=== PATIENT | female | born 1985 | race Caucasian/White ===

== ENCOUNTER 2021-10-20 07:14 | Outpatient (CLI) | payer OTHER, SELFPAY ==
--- OUTSIDE RECORDS SUMMARY | 2021-09-18 09:04 | XMS_ITS | Continuity of Care Document ---
:1985 Author Care Team Providers Name Role Phone MD Juan Espinoza Attending Physician MD Otto Rodriguez Primary Care Physician Chief Complaint and Reason for Visit Chief Complaint Chest Pain Reason for Visit [id number] Allergies, Adverse Reactions, Alerts Allergen Type Severity Reaction Last Verified Status Updated Anesthetics, Adverse Moderate nausea August 29, Yes Active Amide Reaction 2021 Social History Smoking Status Status Start Date End Date Date of Observat ion Never smoked tobacco August 14, 2 022 4:06pm (finding) Observation Status Observation Response Date of Response Non-smoker December 19, 2015 9:27am Does not exercise December 19, 2015 9:27am 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, 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 , project surveyor, 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, 2015 9:27am kids Additional Data Assigned Sex Female Problems Active Problems Medical Problem Onset Date Status PCOS (polycystic ovarian syndrome) Activ e Depression Active ADD (attention deficit disorder) Active Fertility testing Active Hyperemesis gravidarum Active Supervision of other normal Active Anxiety disorder affecting Active , antepartum Encounter for supervision of other Activ e normal , third trimester Sterilization education Active Sterilization Active Anemia due to acute blood loss Active Pneumonia Active Chest wall pain Active Early stage of Active Ectopic Active Encounter for screening for Active COVID-19 S/P PDA repair 1986 Active Status post primary low transverse Activ e section Inactive/Resolved Problems Medical Problem Onset Date Status Migraine July 21, 2009 Resolved Patent Ductus Arteriosus July 21, 2009 Resolved Hyperem W Metab-Antepart September 15, 2010 Resolved Vaginal delivery January 24, 2013 Resolved Medications Medication Status Dose Units Route Directions Qty Days Start End Ins tructions Date Date Lactobacillu Active 2 CAPSULE OR Daily s (Probiotic) CAP Vit Active 1 TAB PO Daily W/ Ferrous Fumara () 1 Tab TAB Acyclovir Disconti 1 BARBARA TOP 5 Times Us e in Topical nued Daily r 14, y 9, affected 2014 2016 areas of 1:47pm 9:41am nares for 5- 7 days, until healed. Amoxicillin Disconti 875 MG PO Twice Daily March il nued For 10 Days , , 2015 2015 10:18am 11:26a m Amoxicillin Disconti 875 MG PO Twice A Day Feb emb nued r , er 2014, 12:59pm 2014 1:47pm Amoxicillin Disconti 500 MG PO Tid X 10 September nued Days , , 2014 2014 5:40pm 12:11p m Amoxicillin Disconti 500 MG PO [id number] June nued r , , 2013 2014 5:30pm 6:23pm Amoxicillin Disconti 500 MG PO Tid [id number] nued , franco 2012 11, 12:52pm 2012 3:25pm Amoxicillin/ Disconti 1 TAB PO Twice Daily Ja nuar Clavulanate nued For 10 Days r , y , Potassium 2019 2020 (Amoxicillin 6:11pm 11:08a & Pot m Clavulanate) 875 Mg/125 Mg TAB Ampicillin Disconti 500 MG PO Three Times h nued A Day er , , 2021 2020 3:07pm 9:57am Azithromycin Disconti 500 MG PO Daily October nued 3rd, er 2014 01, 9:43am 2013 5:16pm Azithromycin Disconti 0 PO Daily July MARYANNE E 500 MG (2 TABLETS) BY MOUTH TODAY, THEN 250 MG (1 TABLET) BY (Zithromax) nued , y , MOUTH O NCE DAILY FOR 4 MORE DAYS. 250 Mg TAB 2009 2010 11:27am 3:19pm Betamethason Disconti 1 BARBARA TOP Twice A Day Se ptem e/Clotrimazo nued er franco le , (Clotrimazol 2019 2019 e/Betamethas 3:07pm 1:59pm one Lotion) LOT Biotin W/ Disconti 1 CHW PO July Vitamins C & nued , E (Hair Skin 2016 & Nails ... 3:49pm 1250-7.5-7.5 Mcg-Mg-Unt) 1 Chw CHW Bupropion Disconti 150 MG PO Daily Septemberuar Hcl nued 15, y (Wellbutrin 2015, Xl) 150 Mg 11:33am 2016 TAB 12:27p m Bupropion Disconti 150 MG PO Daily August Hcl nued , , (Wellbutrin 2015 2015 Xl) 150 Mg 4:23pm 11:33a TAB m Bupropion Disconti 150 MG PO Daily July Hcl nued , , (Wellbutrin 2015 2015 Xl) 150 Mg 4:19pm 4:23pm TAB Cephalexin Disconti 1000 MG PO Twice A Day 40 December em nued , franco 2018 12, 2:56pm 2019 2:30pm Cephalexin Disconti 500 MG PO Three Times ar nued A Day r 14, y 2014 1:47pm 9:41am Cephalexin Disconti 500 MG PO Four Times Octoberem nued Daily , franco 2010 9, 3:38pm 2010 4:20pm Cholecalcife Disconti 67608 U Haroonr monse nued y , (Optimal-D 2020 Pack) 50,000 11:08a Unit CAP m Cholecalcife Disconti Unknow PO Daily Octobe rol (Vitamin nued n Dose r D) Unknown , Strength TAB 2018 3:16pm Ciprofloxaci Disconti 1 TABLET PO Twice Daily September obe n Hcl nued For 7 Days , r 2014, 12:37pm 2014 6:10pm Clomiphene Disconti 50 MG PO Daily Days March Take on cycle Citrate nued 3-7 , days 2021 through 7. 10:39am 3:07pm Clomiphene Disconti 50 MG PO Daily Days May t mathieu 1 tab Citrate nued 3-7 , , daily, days 2016 2016 3-7 of your 9:59am 2:06pm cycle. Dicloxacilli Disconti 500 MG PO W0gwlix 28 mbe Haroonr n Sodium nued r 14th, y , 2016 2017 2:14pm 11:08a m Dicloxacilli Disconti 500 MG PO Four Times 56 Novembe Dec emb n Sodium nued Daily r 18th, er 2012 16th, 6:20pm 2012 10:19a m Diphtheria/T Disconti 0.5 ML IM Once 1 Septem etanus/Acell nued er franco Pertussis , (Adacel) 0.5 2016 2016 Ml INJ 3:42pm 3:50pm Diphtheria/T Disconti 0.5 ML IM Once 1 Septem etanus/Acell nued er franco Pertussis , , (Adacel) 0.5 2012 2012 Ml INJ 2:25pm 2:27pm Diphtheria/T Disconti 0.5 ML IM Once 1 Novembe Novemb etanus/Acell nued r , er Pertussis 2010, (Adacel) 0.5 2:19pm 2010 Ml INJ 2:23pm Docusate Disconti 100 MG PO Twice A Day 120 Novembe Octobe Sodium nued as needed r , r (Docqlace) 2016 15, 100 Mg CAP 8:33am 2017 9:25am Docusate Disconti 100 MG PO Daily 30 Decemb Sodium nued er 4th, er (Colace) 100 2012 16th, Mg TAB 3:50pm 2012 10:19a m Docusate Disconti 100 MG PO Daily Mayem Sodium nued 11, franco (Colace) 100 2012 4th, Mg TAB 3:13pm 2012 3:50pm Doxycycline Disconti 100 MG PO Twice Daily May ch Monohydrate nued For 14 Days er , , 2021 2020 3:07pm 1:18pm Doxycycline Disconti 100 MG PO Twice Daily March tem Monohydrate nued For 14 Days , franco 2020, 11:52am 2020 12:30p m Doxycycline Disconti 100 MG PO Twice Daily 14 7 Sep tem Monohydrate nued For 7 Days er franco , , 2019 2019 4:27pm 1:59pm Ergocalcifer Disconti [id number] UNIT PO Once Weekly 8 Novembe Ma rch ol (Vitamin nued r , , D) 50,000 2020 2021 Unit CAP 8:35am 3:07pm Ergocalcifer Disconti 66492 UNIT PO Once Weekly 8 No vemb ol (Vitamin nued er er D) 50,000 , , Unit CAP 2020 2020 8:31am 8:35am Ergocalcifer Disconti 54534 UNIT PO Once Weekly Se ptem ol (Vitamin nued er franco D) 50,000 , , Unit CAP 2019 2020 3:17pm 8:31am Fluconazole Disconti 150 MG PO Once Marchr ta ke 1 tab (Diflucan) nu, y today. re peat 150 Mg TAB 2016, in 3 days if 1:19pm 2016 still 11:34a symptomatic. m Fluconazole Disconti 150 MG PO Once July (Diflucan) nued , , 150 Mg TAB 2012 2012 5:31pm 3:46pm Gabapentin Disconti 300 MG PO Three Times Octo be Take 300mg (Neurontin) nued A Day er r TID for 2 300 Mg CAP , , weeks. 2010 2010 1:26pm 8:31am Gabapentin Disconti 300 MG PO Three Times October m Take one pill daily for 3 days, then one pill twice a day for 3 days, (Neurontin) nued A Day , franco then one pill three times a day. 300 Mg CAP 2010, 5:02pm 2010 1:26pm Heparin Disconti 250 UNIT IVF Daily August Sodium nued , (Porcine) 2010 11, (Heparin) 11:24am 2010 100 Unit/ 4:20pm SYR Heparin Disconti 500 UNIT IVF Q12 Hours August Sodium nued , , (Porcine) 2010 2010 (Heparin) 8:51am 11:24a 100 Unit/ m SYR Ibuprofen Disconti 200-40 MG PO Every 6 100 Octobe nued 0 Hours as r needed 2018 3:16pm Ibuprofen Disconti 600 MG PO Every 6 50 Novembe Octobe nued Hours as r , r needed 2016, 9:46am 2017 9:25am Influenza Disconti 0.5 ML IM Once 1 Sept Septem Virus nued er franco Vaccine , , Split 2012 2012 (Fluzone (3 2:25pm 2:27pm Years And Older) [id number]) 1 Ml INJ Ketorolac Disconti 10 MG PO Three Times May Tromethamine nued A Day as r , , needed 2020 2021 8:04pm 3:07pm Lactated Disconti 1 L IV Once July Ringer's nued 2012 10:37am 11:51a m Lactated Disconti 1 L IV Once Ringer's nued r , er 2010, 12:35pm 2010 1:33pm Lactated Disconti 1 L IV Once October Ringer's nued 2010 12:38pm 4:03pm Lactated Disconti 1 L IV Once October Ringer's nued 2010 4:22pm 4:24pm Lactated Disconti 1 L IV Once September Ringer's nued 2010 5:09pm 5:15pm Lactated Disconti 1 L IV Once September Ringer's nued 2010 5:19pm 5:26pm Lactated Disconti 1 L IV Once August Ringer's nued 2010 2:19pm 4:33pm Lactated Disconti 1 L IV Once August Ringer's nued 2010 1:51pm 1:54pm Lactated Disconti 1 L IV Once August Started IV at Ringer's ed , , 1031. 2010 2010 10:44am 2:30pm Lactated Disconti 1 L IV Once July Ringer's nued , 2010 4:51pm 4:57pm Lactobacillu Disconti Septem s Rhamnosus nued franco (Culturelle) Ea CAP 2019 9:36am Loratadine Disconti 10 MG PO Daily 30 Octobe (Claritin) nued r 8th, 10 Mg TAB 2019 6:57am Loratadine Disconti 10 MG OR Daily Septem (Claritin) nued franco 10 Mg CAP 2015 2:25pm Medroxyproge Disconti 10 MG PO Daily 1 0 DAYS/MONTH sterone nued er r DIRECTED Acetate , , (Provera) 10 2015 2015 Mg TAB 2:52pm 2:33pm Medroxyproge Disconti 10 MG PO Daily July 10 D AYS/MONTH sterone nued , , DIRECTED Acetate 2015 2015 (Provera) 10 4:19pm 3:56pm Mg TAB Medroxyproge Disconti 10 MG PO Daily September sterone nued X10d/Mon Ud , , Acetate 2011 2012 (Provera) 10 3:54pm 2:27pm Mg TAB Methylpredni Disconti 16 MG PO Three Times August 4 pills 3 times a day for 3 days, then 3 pills 3 times a day for 3 solone nued A Day , , days, then 1 1/2 pills 3 times a day for 3 days. (Medrol) 4 2010 2010 Mg TAB 8:51am 3:38pm Methylpredni Disconti 2 MG PO Daily September 1.5 tabs tid for 3 days, then 1.5 tabs bid for 3 days, then 1 tab bid solone nued , for 3 days, t hen 1 tab daily for 3 days, then stop. (Medrol) 2 2010 2010 Mg TAB 11:47am 3:38pm Methylpredni Disconti 2 MG PO As Directed September 4mg po tid x3 days, then solone nued , , 4mg po bid x3 days, then (Medrol) 2 2010 2010 2mg po bi d x3days, then Mg TAB 1:35pm 3:38pm 2mg po qday x3days, then stop. Metocloprami Disconti 5 MG PO Three Times August de Hcl nued A Day , 14, (Reglan) 2010 Mg TAB 2:54pm 1:49pm No Home Meds Disconti Januar nued y 2010 3:19pm Norethindron Disconti 1 EA PO As Directed mbe Ap ril Day #1 Take 5 pills, Day #2 Take 4 Pills, Day#3 & 4 Take 3 pills, Day e-Ethinyl nued r 29, 15, # 5 & 6 Take 2 pills, then finish out pack. Estradiol 2008 2009 (0.4/35) 2:54pm 10:28a (Ovcon-35) m 0.4 Mg/0.035 Mg TAB Norethindron Disconti 1 TABLET PO Daily October e-Ethinyl nued , er Estradiol 2014 01, (.08/21) 11:20am 2013 (Loestrin 5:16pm -) 1.5 Mg/0.03 Mg TAB Ondansetron Disconti 4 MG PO Every 6 Januar Hcl nued Hours as r 19, y 5th, (Ondansetron needed 2019 2020 Odt) 4 Mg 6:11pm 11:08a TAB m Ondansetron Disconti 8 MG PO Every 8 21 January Octobe Hcl (Zofran) nued Hours 8th, r 8 Mg TAB 2018, 2:53pm 2018 3:16pm Ondansetron Disconti 8 MG PO Three Times 21 November Octo be Hcl (Zofran) nued A Day as 18, r 8 Mg TAB needed 2016, 2:26pm 2016 10:08a m Ondansetron Disconti 8 MG PO Three Times 22 July Augus t Hcl (Zofran) nued A Day as , 18th, 8 Mg TAB needed 2016 2016 2:59pm 2:26pm Ondansetron Disconti 4 MG PO Every 6 May Hcl (Zofran nued Hours as 23, 3rd, Odt) 4MG TAB needed 2016 2016 2:56pm 3:15pm Ondansetron Disconti 4 MG PO Four Times 21 October Decemb Hcl (Zofran nued Daily as 8th, er Odt) 4 Mg needed 2012, TABEF 12:13pm 2012 10:19a m Ondansetron Disconti 4 MG PO Four Times June Hcl (Zofran nued Daily as 15th, 8th, Odt) 4 Mg needed 2012 2012 TABEF 3:09pm 12:13p m Ondansetron Disconti 4 MG PO Four Times May Hcl (Zofran nued Daily as 11th, 17th, Odt) 4 Mg needed 2012 2012 TABEF 3:13pm 3:46pm Ondansetron Disconti 4 MG PO Four Times May Hcl (Zofran nued Daily as 25th, 17th, Odt) 4 Mg needed 2012 2012 TABEF 2:22pm 3:46pm Ondansetron Disconti 4 MG IV Once July Hcl (Zofran nued 3rd, 3rd, Inj) 2 Mg/Ml 2012 2012 ML 10:37am 10:39a m Ondansetron Disconti 4 MG IV Once Hcl (Zofran nued r 23rd, er Inj) 2 Mg/Ml 2010, ML 12:35pm 2010 12:36p m Ondansetron Disconti 4 MG IV Once Decemberobe Hcl (Zofran nued 3rd, r 3rd, Inj) 2 Mg/Ml 2010 2010 ML 12:08pm 2:26pm Ondansetron Disconti 4 MG PO Four Times Augustem Hcl (Zofran) nued Daily 14, franco 4 Mg TAB 2010 11, 1:49pm 2010 4:20pm Ondansetron Disconti 4 MG IV Once October Hcl (Zofran nued 18th, 18th, Inj) 2 Mg/Ml 2010 2010 ML 12:38pm 4:03pm Ondansetron Disconti 4 MG IV Once October Hcl (Zofran nued , 12th, Inj) 2 Mg/Ml 2010 2010 ML 4:22pm 4:24pm Ondansetron Disconti 4 MG IV Once September Hcl (Zofran nued 29th, 29th, Inj) 2 Mg/Ml 2010 2010 ML 4:00pm 4:09pm Ondansetron Disconti 4 MG IV Once September Hcl (Zofran nued 26th, 27th, Inj) 2 Mg/Ml 2010 2010 ML 4:03pm 1:18pm Ondansetron Disconti 4 MG IV Once September Hcl (Zofran nued , 20th, Inj) 2 Mg/Ml 2010 2010 ML 4:40pm 4:42pm Ondansetron Disconti 4 MG IV Once September Hcl (Zofran nued 12th, 12th, Inj) 2 Mg/Ml 2010 2010 ML 5:09pm 5:15pm Ondansetron Disconti 4 MG IV Once September Hcl (Zofran nued 5th, 5th, Inj) 2 Mg/Ml 2010 2010 ML 5:19pm 5:26pm Ondansetron Disconti 4 MG IV Once September Hcl (Zofran nued , , Inj) 2 Mg/Ml 2010 2010 ML 11:17am 3:14pm Ondansetron Disconti 4 MG IV Once August Hcl (Zofran nued , , Inj) 2 Mg/Ml 2010 2010 ML 2:20pm 4:33pm Ondansetron Disconti 4 MG IV Once August Hcl (Zofran nued , , Inj) 2 Mg/Ml 2010 2010 ML 1:51pm 1:54pm Ondansetron Disconti 4 MG PO Every 4-6 July Hcl nued Hours as , , (Ondansetron needed 2010 2010 Odt) 4 Mg 1:25pm 1:49pm TAB Ondansetron Disconti 4 MG PO Every 4-6 July Hcl nued Hours 24, 14, (Ondansetron 2010 2010 Odt) 4 Mg 2:56pm 1:49pm TAB Ondansetron Disconti 4 MG IV Once August Hcl (Zofran nued , 13, Inj) 2 Mg/Ml 2010 2010 ML 1:44pm 1:46pm Ondansetron Disconti 4 MG IV Once August Hcl (Zofran nued , 10th, Inj) 2 Mg/Ml 2010 2010 ML 10:44am 10:46a m Ondansetron Disconti 4 MG IV Once July Hcl (Zofran nued 9th, 9th, Inj) 2 Mg/Ml 2010 2010 ML 4:51pm 4:57pm Oxycodone Disconti 5-10 MG PO Every 4 May Hcl nued Hours as 4th, 21st, needed 2021 2021 9:37am 3:07pm Oxycodone Disconti 5-10 MG PO Every 4 40 Novembe Decemb Hcl nued Hours as , er needed 2016 09, 8:33am 2016 11:20a m Phenazopyrid Disconti 200 MG PO Three Times 10 September ine Hcl nued A Day as , , (Pyridium) needed 2014 2014 200 Mg TAB 5:40pm 12:11p m Polysacchari Disconti 1 CAPSULE PO Daily 60 Novembe Januar de Iron nued r 24, y 3rd, Complex 2016 2017 (Poly-Iron 8:21am 11:08a 150 Forte) m 150 Fort CAP Disconti 1 TAB PO Daily Multivit-Min nued r W/Fe-Fa 2017 9:25am Disconti 1 TAB PO Daily October Multivit-Min nued 3rd, W/Fe-Fa 2013 9:20am Promethazine Disconti 25 MG PO Four Times Juneob e Hcl nued Daily as , r needed for 2016, Nausea/Vomi 9:41am 2016 ting 10:08a m Promethazine Disconti 25 MG PO Q4-6H Prn 22 July Decemb Hcl nued 15, er (Phenergan) 2012, 25 Mg TAB 3:09pm 2012 10:19a m Promethazine Disconti 25 MG PO Q4-6H Prn 21 October Decemb Hcl nued , er 2012 16, 12:34pm 2012 10:19a m Promethazine Disconti 25 MG PO Every 4-6 May Hcl nued Hours 11, 17, (Phenergan) 2012 2012 25 Mg TAB 3:13pm 3:46pm Promethazine Disconti 12.5 MG IA Every 4-6 August PRN nausea Hcl nued Hours as , , (Phenergan needed 2010 2010 Supp) 12.5 3:36pm 8:51am Mg SUPP Ranitidine Disconti 150 MG PO Januar Hcl (Zantac nued y 3rd, 150 Maximum 2017 Streng) 150 11:08a Mg TAB m Ranitidine Disconti 150 MG PO Bedtime Eden Hcl nued 2011 3:43pm Senna/Docusa Disconti 1 TAB PO Twice A Day 30 Novembe Ja nuar te Sodium nued as needed r 19, y , (Senna S) 2019 2020 8.6 Mg/50 Mg 6:11pm 11:08a TAB m Sertraline Disconti 50 MG PO Daily March 25mg daily x Hcl nued , , 1week, then 2016 2016 50mg daily 12:27pm 2:06pm Sodium Disconti 10 ML IVF Daily August Prior to Chloride nued , heparin (Saline 2010 11, flush. Flush 10 Ml) 11:24am 2010 10 Ml SOLN 4:20pm Triamcinolon Disconti 1 BARBARA TOP Twice A Day Ja nuar e Acetonide nued er y , (Triamcinolo 2020 ne Acetonide 2019 11:08a (Cream)) 0.1 3:54pm m % CRE Valacyclovir Disconti 1 GM PO Twice A Day Juneo be Hcl nued , r 2016 02, 11:42am 2015 2:33pm Valacyclovir Disconti 1 GM PO Twice A Day 20 Decembe Ap ril Hcl nued r , 2014 1:47pm 11:42a m Vit Disconti 1 TABLET PO Daily September B12/Iron/Fol nued , ic Ac/Intrin 2011 Fact 3:43pm ( Multivit-Min W/Fe-Fa) TAB Immunizations Immunization Event Date Not Given Dose Jd Edwards Developer Lot Vac cine Reason Number Number Informatio n Statement (VIS) Deta il COVID-19 Pfizer November 152020 Influenza November 23 Sanofi [id number] Tetanus/Diptheri June 23 a 1997 Tdap December 28 (adolescent/adul 2007 t) Tdap January 24 sanofi (adolescent/adul 2010 t) Tdap November 25 Sanofi Pasteur (adolescent/adul 2012 t) Tdap November 26 SANOFI (adolescent/adul 2016 t) Procedures Procedure Date Performed Status Future Lab Clinic August 18, 2021 completed Future Lab Clinic August 23, 2021 completed VASCULAR STUDY August 15, 2021 completed US EXAM PELVIC COMPLETE August 15, 2021 completed TRANSVAGINAL US NON-OB August 15, 2021 completed CHORIONIC GONADOTROPIN TEST August 18, 2021 completed HYSTEROSCOPY BIOPSY August 29, 2021 completed ANESTH HYSTEROSCOPE/GRAPH August 29, 2021 completed ANESTH HYSTEROSCOPE/GRAPH August 29, 2021 completed URINE TEST August 29, 2021 completed IV SOLUTION August 29, 2021 completed FENTANYL August 29, 2021 completed CEFOTETAN August 29, 2021 completed ONDANSETRON August 29, 2021 completed KETOROLAC TROMETHAMINE INJECTION August 29, 2021 complet ed Propofol 10 mg August 29, 2021 completed PROMETHAZINE August 29, 2021 completed SARS-COV-2 COVID-19 AMP PRB August 28, 2021 completed Ultrasound of pelvis using August 15, 2021 completed transabdominal and transvaginal probes Relevant Diagnostic Tests and/or Laboratory Data Laboratory Results Test Date/Time Result Interpretation Reference Result [facility] Range Comment Coronavirus August 28, NEGATIVE NEGATIVE [facility] [place] (COVID-19)(P 2021 SARS-CoV- novel [facility] CR) 1:32pm 2 coronavirus [facility] [address] (SARS-CoV-2) target nucleic acids are not detected by RT-PCR. This result does not rule out SARS-CoV-2 in the patient, as the sensitivity of the test depends on timing of the specimen collection and quality of the specimen. Results should be correlated with the patient's history and clinical presentation . Urine HCG, August 29, NEGATIVE NEGATIVE [facility] Lab Qualitative 2021 [facility] 9:24am [facility] [address] Human August 18, < 2.39 0-5.00 MEN<5 [facility] Lab Chorionic 2021 mIU/mLWOMENN [facility] Gonadotropin 9:40am ON- [facility] [address] , Quant - <5 mIU/mLINDETE RMINANT, may require repeat testing - 5-25 mIU/mLPREGNA NT< 1 WEEK5-50 mIU/mL1-2 [id number] -3 [id number] 03-4 PDDSQ882-84, 0004-5 WEEKS1,000-5 0,0005-6 WEEKS10,000- 100,0006-8 WEEKS15,000- 200,0008-12 WEEKS10,000- 100,000Patie nts taking a high dose (>5mg/day) of Biotin supplement (vitamin B7) will demonstrate a >10% negative bias for this test. Pathology August 29, SEE REF [facility] Lab Specimen 2021 PATH SCAN [facility] Result 10:30am [facility] [address] Diagnostic Imaging Reports Report Dictated Date/Time Dictated By Status August 15, 2021 9:11am [place] [address] ~DEPARTMENT OF DI AGNOSTIC IMAGING~ Patient: ELISHA HERRERA MR #: [id number] : 1985 Age: 36 Sex: F Ordering MD: Pinky Espinoza MD Rm /Bed: Loc: RAD Report #: [id number] US/PEL KIMBERLY TA AND TV Date: 08/15/21 Signed For Patients: As a result of the entury Cures Act, medical imaging exams and procedure reports are release d immediately into your electronic medical record. You may view this repo rt before your referring provider. If you have questions, please contact y our health care provider. INDICATION: Left pelvic pain, right-sided ectopic 2 months ago status post laparoscopic surgery. History of tubal reversal. COMPARISON: 05/26/2021, 05/11/2020 TECHNIQUE: 2D chaidez scale and color Doppler images were acquired of the pelvis using a transabdominal and transvaginal approac h. FINDINGS: The uterus is retroflexed. No uterine f ibroid. The uterus measures 9.7 x 4.7 x 6.0 cm. The endometrium measures 1.2 cm. No endometrial fluid. No intrauterine . Focal area of i ncreased echogenicity within the fundal endometrium measuring 1 cm is pr esent which may represent a focal area of hyperplasia or perhaps a small polyp. The right ovary measures 3.5 x 1.4 x 2. 2 cm in the left ovary measures 4.1 x 2.3 x 3.1 cm. Adjacent to the left ov vilma is a somewhat vascular mixed solid and cystic area measuring 2.7 x 1 .3 x 1.5 cm. A small cyst is located within the left ovary measuring 1.9 x 1 .7 x 1.9 cm. Trace amount of pelvic free fluid noted. IMPRESSION: Indeterminate solid and cystic vascular area within the left adnexa separate from the left ovary measuring 2.7 x 1.3 x 1.5 cm, cannot exclude recurrent ectopic. No evidence of ovari an torsion. Dictated by Mk Serra MD @ 2 9:20:00 AM (Electronically Signed) Dictated By: MK SERRA MD Signed By: MK SERRA MD Advance Directives Advance Directive Response Recorded Date/Time Does Pt have Health Care No January 19 015 11:37am Directive? Has patient completed a No August 14, 2021 4 :06pm Health Care Directive? Insurance Providers Guarantor Elisha Herrera Address [address] [place], [place] [id number] Contact Info. Home Phone: Payer Policy Id Coverage Id Subscriber's Subscriber Effective Expi ration Name Id Date Date [place] [id number] Jez Herrera Encounters Encounter Location(s) Arrival/Admit Date Discharge/Depart Date Provider(s) Departed [place] August 29, 2021 [facility] Juan GONZALES Care Registered [place] August 28, 2021 Martha Espinoza [facility] 1:31pm Juan GONZALES Registered [facility] August 28, 2021 null Practice 1:30pm Office Visit [place] August 28, 2021 Martha Espinoza [facility] 1:30pm Juan GONZALES Registered [place] August 18, 2021 [facility] 9:36am Juan GONZALES Office Visit [facility] August 18, 2021 Nevin Espinoza [facility] 9:30am Juan GONZALES Registered [place] [facility] Juan GONZALES Functional Status Observation Response Date Recorded Functional Status Independent February 12, 2017 8:00am Mental Status Observation Response Date Recorded Cognitive Status Alert February 12, 2017 8:00am Oriented February 12, 2017 8:00am Plan of Treatment Future Tests Future scheduled test information is unavailable Pending Tests Pending diagnostic test information is unavailable Future Visits Future appointment information is unavailable Referrals to Other Providers Reason for Referral Start Provider Provider Contact Provider Address Referral Date Information Margarita Rodriguez Work Phone: JUAN Gracia [place] GONZALES [address] [facility] [phone] Future Procedures Procedure Name Scheduled Date US Pelvic TA and TV Future Medications Future medication information is unavailable Patient Instructions See Additional Instructions Bacterial Pneumonia (ED)
--- NOTE | 2021-10-20 07:15 | CRLHL7_ITS ---
For Patients: As a result of the Century Cures Act, medical imaging exams and procedure reports are released immediately into your electronic medical record. You may view this report before your referring provider. If you have questions, please contact your health care provider. CLINICAL HISTORY: Follow-up left adnexal lesion 2.7 x 1.3 x 1.5 centimeters and could be minimally decreased in size. This is Comparison ultrasound 07/26/2021 TECHNIQUE: Real time, chaidez scale images were acquired of the pelvis using a transabdominal and transvaginal approach. Color Doppler analysis was performed of the ovaries. FINDINGS: The uterus measures 10.8 x 5 x 6.5 centimeters. Endometrium measures 1.5 cm. Right ovary measures 3.1 x 1.7 x 1.7 centimeters. Left ovary measures 3 x 2.2 x 1.7 centimeters. Right ovary appears unremarkable. Again seen is a solid cystic small area adjacent to left ovary measuring 2 x 1 x 1.3 centimeters possibly slightly decreased in size. IMPRESSION: Similar appearance of a solid cystic small lesion adjacent to left ovary measuring 2 x 1 x 1.3 centimeters. This previously measured 2.7 x 1.3 x 1.5 centimeters and could be slightly decreased in size. Consider continued sonographic surveillance and/or gynecology consultation. Follow-up could be performed in 8-12 weeks. Dictated by Helena Ac MD @ 10/20/2021 8:48:39 AM (Electronically Signed)
== END 2021-10-20 07:15 | disposition home or self-care (01) ==
LOC: US 07:15
PROVIDERS: PCP Family Medicine; Visit Provider Obstetrics & Gynecology
DX: R19.00 Intra-abdominal and pelvic swelling, mass and lump, unspecified site (principal); N83.202 Unspecified ovarian cyst, left side
CPT/HCPCS: 76830; 76856

== ENCOUNTER 2021-12-06 10:23 | Outpatient (CLI) | payer OTHER, SELFPAY ==
--- NOTE | 2021-12-06 10:15 | CRLHL7_ITS ---
For Patients: As a result of the Century Cures Act, medical imaging exams and procedure reports are released immediately into your electronic medical record. You may view this report before your referring provider. If you have questions, please contact your health care provider. Indication: Bleeding in early . The patient has a history a right sided ectopic with right tube resection. Technique: Transvaginal examination of pelvis was performed. Comparison: None Findings: The uterus appears normal. The endometrium is of normal caliber 1.5 centimeters. No intrauterine yolk sac, pole, gestational reaction or pseudo gestational reaction. The right ovary appears normal. There is no right adnexal mass. The right ovary measures 2.6 x 1.8 x 2.1 centimeters There is no free fluid in the cul-de-sac. The left ovary appears normal measuring 3.2 x 2.0 x 2.3 centimeters. There is a shadowing area in the left adnexa which by report is the area of pain. This is probably bowel gas but renders invisible the most likely area that this patient would have an ectopic . I recommend that this study be repeated in an attempt to better evaluate the space between the left ovary and the uterus. Impression: Area of shadowing in the left adnexa for which repeat evaluation is advised as above. Dictated by Yuri Collins MD @ 12/06/2021 11:34:04 AM (Electronically Signed)
== END 2021-12-06 10:24 | disposition home or self-care (01) ==
LOC: US 10:24
PROVIDERS: PCP Family Medicine; Visit Provider Obstetrics & Gynecology
DX: O20.9 Hemorrhage in early pregnancy, unspecified (principal)
CPT/HCPCS: 76817; 84702

== ENCOUNTER 2022-03-13 04:34 | Emergency (ER) | payer OTHER, SELFPAY ==
[2022-03-13 04:42] VITALS: BP 155/109; PULSE 75; RESP 16; TEMP 36.6; O2SAT 98
[2022-03-13 05:00] VITALS: BP 120/82; PULSE 71; RESP 16; O2SAT 98
--- NOTE | 2022-03-13 05:01 | CRLHL7_ITS ---
For Patients: As a result of the Century Cures Act, medical imaging exams and procedure reports are released immediately into your electronic medical record. You may view this report before your referring provider. If you have questions, please contact your health care provider. INDICATION: Right-sided pain. Injury. COMPARISON: Portions of a February 11, 2020 examination TECHNIQUE: CT examination of the abdomen and pelvis was performed following the uneventful intravenous administration of 68 cc of Isovue 3 7. Thin section axial images were obtained from the lung bases through the pubic symphysis. Oral contrast was not administered. Please note that all CT scans at this facility use dose modulation, iterative reconstruction, and/or weight-based dosing when appropriate to reduce radiation dose to as low as reasonably achievable. FINDINGS: LUNG BASES: The lung bases as visualized appear normal.The heart size is normal at the lung bases. LIVER/BILIARY SYSTEM:The liver is normal in size and configuration. There is no focal mass and there is no intra- or extra hepatic biliary ductal dilatation.Hepatic steatosis. Gallbladder surgically absent ADRENALS: Normal KIDNEYS, URETERS and BLADDER:The kidneys appear normal. No visible mass, calculus or hydronephrosis. The ureters and bladder as visualized appear normal. SPLEEN:Normal appearance. PANCREAS: Appears normal. RETROPERITONEUM and MESENTERY: There is no mass, adenopathy or aortic aneurysm. GASTROINTESTINAL SYSTEM: There is no evidence of diverticulitis, colitis, mechanical obstruction, or appendicitis. The small bowel as visualized appears normal. PELVIS: No mass, adenopathy or free fluid. OSSEOUS STRUCTURES and ABDOMINAL WALL: There is an age-appropriate appearance of the osseous structures.No significant abdominal wall defect. OTHER: No free fluid or free air. IMPRESSION: No visible cause for pain. No post traumatic findings. Incidental nonacute appearing findings as above. Please note that all CT scans at this facility use dose modulation, iterative reconstruction, and/or weight-based dosing when appropriate to reduce radiation dose to as low as reasonably achievable. Dictated by Yuir Collins MD @ 03/13/2022 5:40:37 AM (Electronically Signed)
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
[2022-03-13] MEDS: KETOROLAC 15 MG/ML inj IVP (05:15)
[2022-03-13 05:30] LABS: Hematocrit 38.5 % (33.0-51.0); Hemoglobin* 13.3 gm/dL (12.0-16.0); Lymphocytes Percent Auto 35.8 % (20-44); Mean Corpuscular HGB Conc 35 gm/dL (32-36); Mean Corpuscular Hemoglobin 29 pg (26-34); Mean Corpuscular Volume 84 fL (80-100); Monocytes Percent Auto 5.8 % (0.0-11.0); Neutrophils Percent Auto 54.8 % (42.0-72.0); Platelet Count* 336 K/uL (140-440); Red Blood Count 4.58 m/uL (4.00-5.20); White Blood Count* 7.09 K/uL (4.50-11.00)
[2022-03-13 05:31] LABS: Basophils Percent Auto 0.4 % (0.0-3.0); Eosinophils Percent Auto 2.8 % (0.0-7.0); Immature Granulocytes Pct Auto 0.4 %; Slide Review Reflex No
[2022-03-13 05:32] LABS: HCG Qualitative* Negative (Negative)
[2022-03-13 05:43] LABS: Blood Urea Nitrogen* 16 mg/dL (5-24); Calcium* 9.1 mg/dL (8.4-10.6); Carbon Dioxide* 28 mmol/L (20-32); Chloride* 105 mmol/L (96-114); Creatinine* 0.7 mg/dL (0.5-1.5); Est. Creatinine Clearance* 110.59; Estimated Glomerular Filt Rate 115 ml/min; Glucose* 96 mg/dL (60-115); Sodium* 140 mmol/L (135-149)
[2022-03-13 06:01] VITALS: BP 118/76; PULSE 68; RESP 16; TEMP 36.6; O2SAT 98
== END 2022-03-13 06:02 | disposition home or self-care (01) ==
PROVIDERS: Emergency Provider Family Medicine; PCP Family Medicine
DX: S39.92XA Unspecified injury of lower back, initial encounter (principal); M54.50 Low back pain, unspecified; V43.52XA Car driver injured in collision with other type car in traffic accident, initial encounter; Y92.414 Local residential or business street as the place of occurrence of the external cause; Y93.89 Activity, other specified
CPT/HCPCS: 36415; 74177; 80048; 84703; 85025; 96374; 99283; 99284; J1885; Q9967

== ENCOUNTER 2022-03-30 11:59 | Outpatient (CLI) | payer OTHER, SELFPAY ==
[2022-03-30 19:15] LABS: Chlamydia DNA Amplified* NOT DETECTED (No Detected); GC DNA Amplified* NOT DETECTED (No Detected)
== END 2022-03-30 12:00 | disposition home or self-care (01) ==
PROVIDERS: PCP Family Medicine; Visit Provider Registered Nurse
DX: R30.0 Dysuria (principal); N89.8 Other specified noninflammatory disorders of vagina; R10.2 Pelvic and perineal pain
CPT/HCPCS: 87086; 87109; 87491; 87591

== ENCOUNTER 2022-04-03 08:50 | Outpatient (CLI) | payer OTHER, SELFPAY ==
[2022-04-03 11:18] LABS: HCG Quantitative* 12.73 mIU/mL
== END 2022-04-03 08:51 | disposition home or self-care (01) ==
LOC: NFLDREF 08:51
PROVIDERS: PCP Family Medicine; Visit Provider Obstetrics & Gynecology
DX: N89.8 Other specified noninflammatory disorders of vagina (principal); R30.0 Dysuria
CPT/HCPCS: 84702

== ENCOUNTER 2022-04-04 02:30 | Emergency (ER) | payer OTHER, SELFPAY ==
[2022-04-04 02:39] VITALS: BP 122/86; PULSE 95; RESP 16; TEMP 36.7; O2SAT 100; BMI 28.3
--- NOTE | 2022-04-04 03:23 | ED_ITS ---
HPI - General Adult General Date Seen: 04/04/22 Chief complaint: OB/Uterine Contractions Stated complaint: ectopic - 4 weeks Time Seen by Provider: 04/04/22 02:37 Source: patient Mode of arrival: ambulatory Limitations: no limitations History of Present Illness HPI narrative: Patient is a 36-year-old female had a lab draw yesterday because of some abdominal discomfort in early . Her hCG level is 12. She received these results through her patient portal at approximately 2:00 a.m. and called the triage nurse who told her to come to the emergency department. Her history is that of a ruptured ectopic on the right on 05/26/2021. She is extremely afraid that this current is in her left fallopian tube and that the same thing is going to happen again. She has had no vaginal bleeding. Her pain was mild until she received her test result and is now more severe. She is extremely anxious and has a panic attack in the room tonight. She is upset that when she called the clinic she was not able to get past the triage nurse and speak to her doctor. She makes comments to the affect of no one will listen to me, no one cares about me, I am going to from this. I explained to her and that with an hCG of 12 her baby's not big enough to see with ultrasound in that if it were in her tube it is not big enough to cause a tubal rupture. I did my best to let her know that we do care about her and do not want anything bad to happen but at this extremely early stage we need to wait this out for the time being. I did promise to get a message to her primary provider so that she can communicate a plan with the patient. She denies any difficulty with bowel or bladder. There has been no vaginal bleeding or discharge. She has had no fevers or chills. I went back and reviewed the details of her previous ruptured ectopic and shared with her that her hCG was 325 on 05/08/2021. If we assumed that her hCG doubled every 48 hours, by the time of her surgery her hCG would have been around 166,000. She had been under the impression that her hCG was only about a 1000 when the rupture occurred and I have reassured her that that was not the case. Related Data Home Medications Medication Instructions Recorded Confirmed lactobacillus combination no.4 3 3,000 mmu cells PO QDAY 12/06/21 03/30/22 billion cell capsule (Probiotic) prenat.vits,nain,[id number] 1 tab PO QDAY 03/30/22 03/30/22 Allergies Allergy/AdvReac Type Severity Reaction Status Date / Time Anesthetics, Amide AdvReac Intermediate Nausea Uncoded 03/30/22 11:44 Review of Systems Narrative: Review of systems is outlined above otherwise noted to be negative. [facility] Medical History Acute posthemorrhagic anemia Ectopic (05/26/21) Hyperemesis gravidarum Migraine (07/21/09) Patent ductus arteriosus (07/21/09) Vaginal delivery Surgical History H/O unilateral salpingectomy (05/26/21) History of cholecystectomy (12/30/18) History of hysteroscopy (08/29/21) History of reversal of tubal ligation (01/2020) Status post primary low transverse section (02/12/17) Status post repair of patent ductus arteriosus (1986) Social History Smoking Status: Never smoker Do you use any of these nicotine containing products: None How often do you have a drink containing alcohol: never AUDIT-C Alcohol total score: 0 Non-prescribed substance use: denies use Exam Narrative: Exam Narrative: Vitals noted. HEENT: Conjunctiva clear. Neck is supple without adenopathy, thyromegaly. Lungs: Clear to auscultation in all felix. No wheezes, rales, rhonchi. Heart: Regular rate and rhythm without murmur. Abdomen: Soft with normal bowel sounds. No guarding, rigidity, rebound. She does have some mild left lower quadrant tenderness. I did not do a pelvic exam. Extremities: No cyanosis or edema. Good distal pulses. Skin: No abnormalities noted of the exposed skin. Neurologic: Awake, alert, fully oriented. She is tearful and hyperventilates but is able to calm herself without medication. I had a 20 minute discussion with her about this situation. Const: Vital Signs, click to edit/add: Vital Signs - 24 hr 04/04/22 02:39 Temperature 98.1 F Pulse Rate [Left P ulse Oximeter] 95 Respiratory Rate 16 Blood Pressure [Le ft Upper Arm] 122/86 Pulse Oximetry 100 Oxygen Delivery Me thod Room Air Course Course Hospital Course: After our discussion I did promise to reach out to her primary provider when she arrives in clinic this morning to try to get a plan formulated and help resolve her frustration with the clinic, the phone tree, and the triage system. Vital Signs Vital signs: Initial Vital Signs Temperature 98.1 F 04/04/22 02:39 Temperature Source Temporal Artery Scan 04/04/22 02:39 Pulse Rate 95 04/04/22 02:39 Respiratory Rate 16 04/04/22 02:39 Blood Pressure 122/86 04/04/22 02:39 Blood Pressure Mean 98 04/04/22 02:39 Blood Pressure Position Sitting 04/04/22 02:39 Pulse Oximetry 100 04/04/22 02:39 Oxygen Delivery Method 04/04/22 02:39 Vital Signs Temperature 98.1 F 04/04/22 02:39 Pulse Rate 95 04/04/22 02:39 Respiratory Rate 16 04/04/22 02:39 Blood Pressure 122/86 04/04/22 02:39 Pulse Oximetry 100 04/04/22 02:39 Oxygen Delivery Method 04/04/22 02:39 Temperature 98.1 F 04/04/22 02:39 Pulse Rate 95 04/04/22 02:39 Respiratory Rate 16 04/04/22 02:39 Blood Pressure 122/86 04/04/22 02:39 Pulse Oximetry 100 04/04/22 02:39 Oxygen Delivery Method 04/04/22 02:39 Discharge Plan Discharge Clinical Impression: Abdominal pain during in first trimester Patient Disposition: Home, Self-Care Condition: Improved Additional Instructions: I will ask your flatcar whacker to contact you tomorrow to discuss a plan. I suspect that they will want to do serial HCGs and an early ultrasound when her hCG is high enough to locate the . Use Tylenol 1000 mg every 6 hours as needed. Prescriptions: No Action prenat.vits,nain,kjk-[id number] Tablet 1 tab PO QDAY Probiotic 3 billion cell capsule 3,000 mmu cells PO QDAY Rx Instructions: administer with a meal Follow Up/Referrals: Pinky Espinoza MD [Staff Physician] - Margarita Rodriguez MD [Primary Care Provider] - Stand Alone Forms: [employer] Info Instructions
== END 2022-04-04 03:29 | disposition home or self-care (01) ==
LOC: ED 03:25
PROVIDERS: Emergency Provider Family Medicine; PCP Family Medicine
DX: R10.9 Unspecified abdominal pain (principal); O90.9 Complication of the puerperium, unspecified
CPT/HCPCS: 99281; 99283

== ENCOUNTER 2022-04-05 13:05 | Outpatient (CLI) | payer OTHER, SELFPAY ==
[2022-04-05 16:09] LABS: HCG Quantitative* 20.36 mIU/mL
== END 2022-04-05 13:06 | disposition home or self-care (01) ==
PROVIDERS: PCP Family Medicine; Visit Provider Obstetrics & Gynecology
DX: Z87.59 Personal history of other complications of pregnancy, childbirth and the puerperium (principal)
CPT/HCPCS: 84702

== ENCOUNTER 2022-04-06 09:07 | Outpatient (CLI) | payer OTHER, SELFPAY ==
--- NOTE | 2022-04-06 09:15 | CRLHL7_ITS ---
For Patients: As a result of the Century Cures Act, medical imaging exams and procedure reports are released immediately into your electronic medical record. You may view this report before your referring provider. If you have questions, please contact your health care provider. INDICATION: Early , left lower quadrant pelvic pain, history of right sided ectopic status post right salpingectomy. Beta hCG measures 20. COMPARISON: Pelvic ultrasound 12/06/2021. TECHNIQUE: 2D chaidez scale and color Doppler images were acquired of the pelvis using a transvaginal approach. FINDINGS: Sonographic images demonstrate a normal size and smooth outer contour of the uterus. The uterus is retroverted in position. The uterus measures 8.2 cm in length by 4.1 cm in AP diameter by 5.5 cm in transverse dimension. The myometrium has uniform echotexture. The endometrial lining measures 14 mm in composite thickness. There is a 0.8 x 0.3 x 0.8 cm cystic space within the endometrial canal in the lower uterine segment. Nabothian cyst in the cervix. The right ovary measures 3.3 x 1.4 x 1.7 cm and the left ovary measures 3.7 x 1.9 x 2.0 cm. The ovaries demonstrate normal arterial and venous blood flow on color Doppler analysis. There is a 1.6 x 1.0 x 1.4 cm heterogeneous lesion in the left ovary with internal vascularity. No suspicious adnexal mass. No free fluid in the cul-de-sac. IMPRESSION: 1. Thickened endometrial lining with a subcentimeter cystic space in the lower uterine segment. This could represent an early gestational sac versus physiologic fluid. 2. Indeterminate heterogeneous vascular lesion in the left ovary, possibly a corpus luteum although ectopic cannot entirely be excluded. No suspicious adnexal mass separate from the ovary. 3. Recommend correlation with serum beta HCG levels and follow-up imaging as clinically indicated. Dictated by Rhiannon Mcclain MD @ 04/06/2022 10:48:53 AM (Electronically Signed)
[2022-04-08 10:24] LABS: HCG Quantitative* 31.15 mIU/mL
== END 2022-04-06 09:08 | disposition home or self-care (01) ==
LOC: US 09:07
PROVIDERS: Obstetrics & Gynecology; PCP Family Medicine; Visit Provider Registered Nurse
DX: O35.8XX0 Maternal care for other (suspected) fetal abnormality and damage, not applicable or unspecified (principal); R10.9 Unspecified abdominal pain
CPT/HCPCS: 36415; 76817; 84702; 93976

== ENCOUNTER 2022-04-09 10:51 | Outpatient (CLI) | payer OTHER, SELFPAY ==
[2022-04-09 12:51] LABS: HCG Quantitative* 40.32 mIU/mL
== END 2022-04-09 10:52 | disposition home or self-care (01) ==
LOC: NFLDREF 10:52
PROVIDERS: PCP Family Medicine; Visit Provider Obstetrics & Gynecology
DX: O26.891 Other specified pregnancy related conditions, first trimester (principal); R10.9 Unspecified abdominal pain; Z87.59 Personal history of other complications of pregnancy, childbirth and the puerperium
CPT/HCPCS: 84702

== ENCOUNTER 2022-04-10 16:00 | Outpatient (CLI) | payer OTHER, SELFPAY ==
[2022-04-10 16:38] LABS: Albumin* 4.5 g/dL (3.3-5.0); Chloride* 104 mmol/L (96-114); Potassium* 4.1 mmol/L (3.6-5.1); Sodium* 140 mmol/L (135-149)
[2022-04-10 16:41] LABS: Alanine Aminotransferase* 32 U/L (4-35); Alkaline Phosphatase* 85 U/L (40-150); Aspartate Amino Transferase* 39 U/L (12-35); Bilirubin Total* 0.5 mg/dL (0.1-1.5); Blood Urea Nitrogen* 15 mg/dL (5-24); Carbon Dioxide* 28 mmol/L (20-32); Creatinine* 0.6 mg/dL (0.5-1.5); Estimated Glomerular Filt Rate 119 ml/min; Glucose* 120 mg/dL (60-115); Total Protein* 7.7 g/dL (6.0-8.3)
[2022-04-10 16:42] LABS: Calcium* 9.4 mg/dL (8.4-10.6)
== END 2022-04-10 16:01 | disposition home or self-care (01) ==
LOC: NFLDREF 16:01
PROVIDERS: PCP Family Medicine; Visit Provider Obstetrics & Gynecology
DX: Z79.899 Other long term (current) drug therapy (principal); O02.89 Other abnormal products of conception
CPT/HCPCS: 80053

== ENCOUNTER 2022-04-12 09:36 | Day surgery (SDC) | payer OTHER, SELFPAY ==
[2022-04-12] VITALS (11 sets, daily range): BP systolic 102–120; BP diastolic 70–88; PULSE 70–94; RESP 14–16; TEMP 36.4–37.6; O2SAT 96–100; BMI 29.5
[2022-04-12] MEDS: LACTATED RINGERS 1000 ML 1,000 ML 100 ML IV (10:00)
[2022-04-12] MEDS: SODIUM CHLORIDE 0.9 % (FLUSH) 10 ML SYRINGE IVF (10:34)
[2022-04-12 10:39] LABS: Hemoglobin* 13.2 gm/dL (12.0-16.0)
[2022-04-12 10:40] LABS: Ur HCG Qualitative* Negative (Negative)
[2022-04-12] MEDS: BUPIVACAINE 0.25% 30 ML INJECTION (13:06)
--- NOTE | 2022-04-12 13:44 | W.ANESCHARGE ---
Anesthesia Charges Start Date/Time Anesthesia Start Date: 04/12/22 Anesthesia Start Time: 12:23 Stop Date/Time Anesthesia Stop Date: 04/12/22 Anesthesia Stop Time: 13:52 Summary Emergency: No
--- NOTE | 2022-04-12 13:51 | W.ANESCHARGE ---
Anesthesia Charges Start Date/Time Anesthesia Start Date: 04/12/22 Anesthesia Start Time: 12:23 Stop Date/Time Anesthesia Stop Date: 04/12/22 Anesthesia Stop Time: 13:52 Summary Emergency: No
--- NOTE | 2022-04-12 14:02 | W.PM.GYNPROC ---
Procedure Note Date Seen: 04/12/22 Procedure Details: PREOPERATIVE DIAGNOSIS: Nonviable of uncertain location History of bilateral tubal tubal reanastomosis History of right ectopic , status post right salpingectomy POSTOPERATIVE DIAGNOSIS: Nonviable of uncertain location History of bilateral tubal tubal reanastomosis History of right ectopic , status post right salpingectomy Suspected endometriosis, stage I PROCEDURE: Suction uterine curettage Laparoscopy with left salpingectomy, excision of endometriosis SURGEON: Mara Martin MD TRUCK JUMPER: Reny Johnson MD ANESTHESIA: General IV FLUIDS: 800 mL crystalloid URINE OUTPUT: 50 mL EBL: 5 mL FINDINGS: 1. Upon pelvic exam under anesthesia, the cervix and vagina were normal in appearance. Uterus was mobile and retroverted, slightly enlarged to 8 week size and of normal texture. There were no palpable adnexal masses. 2. Upon laparoscopy, survey of the upper abdomen revealed a normal appearance to the inferior edge of the liver and stomach. Bowels were grossly normal appearance. Survey of the pelvis revealed a single pinpoint powder burn macule within the serosa of the right posterior uterine fundus. The uterus was otherwise normal in appearance. The bladder reflection was scarred, consistent with history of previous . Right tube was surgically absent. Bilateral ovaries were normal in appearance. Left fallopian tube was shortened, with a constriction in its midportion, past which 0.2 with slightly dilated. There was a subcentimeter cyst at that site, as well as at the fimbriated portion. There was no obvious bleeding from any pelvic structure. The cul-de-sac was normal in appearance. COMPLICATIONS: None PROCEDURE IN DETAIL: Patient was taken to the operating with IV running. She had received IV doxycycline in preoperative prophylaxis. She was placed in dorsal lithotomy position. General anesthesia care was administered. She was prepped and draped in the usual sterile fashion. Alvarez catheter was placed in her bladder. Exam under anesthesia was performed for the above-noted findings. Speculum was inserted. Cervix was grasped along its anterior lip with an Allis clamp. Paracervical block was performed with a total of 10 mL of 1% lidocaine. The cervix was serially dilated to 7 [place]ian. A size 7 rigid suction cannula was then passed through the cervix to the uterine fundus. Suction was applied, and the suction cannula was withdrawn along the path of insertion. This was repeated one more time, without obvious return of products of conception. Thereafter, sharp curettage was performed circumferentially, and a gritty texture was noted throughout. Minimal tissue was obtained with curettings. The Allis clamp was removed from the anterior lip the cervix, and hemostasis was noted. A single-toothed uterine manipulator was placed on the anterior lip the cervix. The speculum was then removed from the vagina. Attention was turned to patient's abdomen. The infraumbilical area was infiltrated with small amount of Marcaine. An infraumbilical incision was made with a scalpel and carried through to the underlying layer of fascia with a hemostat. The 5 mm Fios Kii trocar was assembled with laparoscope within, and insufflator attached. While tenting up the abdomen manually, the trocar was passed through the anterior abdominal wall into the peritoneal cavity. Trocar was removed. Pneumoperitoneum was achieved. Survey of abdomen and pelvis revealed the above-noted findings. Two additional port sites were created. The first was in the patient's left lower quadrant, just superior medial to the left ASIS. The second was a hand's breath superior to and slightly medial to the first. Each was infiltrated with small amount of Marcaine prior to incision. A 5 mm incision was made at each site, making sure the large vessels were out of harm's way. A 5 mm Fios Kii port was inserted at each site, under direct visualization and without complication. The balloon on each of the three ports was inflated, holding each in place. The left fallopian tube was elevated away from the pelvic sidewall. The blood supply was divided laterally with the Thunderbeat cautery device. Dissection was carried laterally to medially through the mesosalpinx, until the cornua was reached. The left tube was amputated at the cornua. The tube was removed through the patient's abdomen and sent to pathology for further analysis. The macule of endometriosis was dissected sharply off of the uterine serosa. This was sent to pathology for confirmation. Hemostasis at that site was achieved with monopolar cautery. All instruments were removed from the ports. The balloon tip of each port was deflated, and pneumoperitoneum was released. The ports were removed. Oozing vessels beneath each skin incision were treated with electrocautery. The skin was closed at each site in a subcuticular fashion with 4-0 Monocryl. Surgical glue was applied above this. Patient's legs were placed back in lithotomy position. The single-toothed uterine manipulator was removed and hemostasis of the cervix was noted. A Alvarez catheter was removed. Patient tolerated procedure well and was taken to recovery area in stable condition.
[2022-04-12] MEDS: OXYCODONE 5 MG TABLET PO (14:39)
== END 2022-04-12 16:00 | disposition home or self-care (01) ==
PROVIDERS: Anesthesiology; PCP Family Medicine; Visit Provider Obstetrics & Gynecology
PROC: (CPT 58661; principal; 2022-04-12 11:30)
DX: O00.102 Left tubal pregnancy without intrauterine pregnancy (principal); Z90.79 Acquired absence of other genital organ(s); N80.00 Endometriosis of the uterus, unspecified
CPT/HCPCS: 58120; 59151; 58662; 00840; 36415; 81025; 85018; 86850; 86900; 86901; 88305; A9270; J0131; J0330; J1100; J1200; J1885; J2370; J2405; J2704; J3010; J3490; J7120

== ENCOUNTER 2022-08-07 12:46 | Emergency (ER) | payer OTHER, SELFPAY ==
[2022-08-07] VITALS (19 sets, daily range): BP systolic 106–136; BP diastolic 69–92; PULSE 110–131; RESP 18; TEMP 37.5; O2SAT 94–100; BMI 28.3
--- NOTE | 2022-08-07 13:16 | CRLHL7_ITS ---
For Patients: As a result of the Century Cures Act, medical imaging exams and procedure reports are released immediately into your electronic medical record. You may view this report before your referring provider. If you have questions, please contact your health care provider. INDICATION: TACHYCARDIA AND SOB TECHNIQUE: Chest 1 view. COMPARISON: None. FINDINGS: Cardiovascular and mediastinum: Heart size and vasculature are normal in caliber and appearance. Mediastinum is within normal limits. Lungs and pleural space: Lungs are clear. No sign of infiltrate or mass. No sign of pleural effusion. No pneumothorax. Bones and soft tissues: No significant findings. IMPRESSION: Unremarkable chest. Dictated by: Laith Schmidt MD @ 08/07/2022 13:50:19 (Electronically Signed)
--- NOTE | 2022-08-07 13:18 | ED_ITS ---
HPI - General Adult General Chief complaint: Unspecified Complaint, Adult Stated complaint: Elevated heartrate, aching in hips/legs Time Seen by Provider: 08/07/22 12:50 History of Present Illness HPI narrative: 37-year-old woman presenting to the emergency department with concern of just feeling awful. She went to bed feeling all right. Did not have the best sleep. After getting up with the kids put herself back to bed. Became more concerned as her heart rate was notably elevated into the 130s. Denies a history of arrhythmia/dysrhythmia. She does feel short of breath. Is not really having chest pain. She hurts all over. Has had some chills but no measured fever. Does have some sore throat. Kids in the family with cold symptoms and apparently molluscum contagiosum which Elisha also contracted and recently has received cryotherapy for this. Little over a month ago did have a root canal in the right upper jaw. Subsequent dry socket and infection. Is not noting more pain there. She has also had some swelling and discomfort at the right breast over the last 4 weeks. Is anticipating visit with primary care provider shortly for this evaluation. Not noting drainage from or redness of the breast itself. Has been struggling with hip pain for which she sees a chiropractor. This is been amplified now too. Admittedly she is anxious about all of this particularly just worried about what this high heart rate might be. She is also worried about her kidneys though not exactly clear why. Is no longer on contraceptives having had bilateral salpingectomy. She becomes tearful talking about this noting she had wanted 1 more child; does have 3 children currently. She has had some right mid tibial swelling apparently thought to be venous. On exam I do not notice much admittedly it swells out when she standing. Lower leg feels generally full. Related Data Home Medications Medication Instructions Recorded Confirmed lactobacillus combination no.4 3 3,000 mmu cells PO QDAY 12/06/21 04/24/22 billion cell capsule (Probiotic) prenat.vits,nain,tus-uzsh-bgaiu 1 tab PO QDAY 03/30/22 04/12/22 Previous Rx's Medication Instructions Recorded acetaminophen 500 mg tablet 1,000 mg (2 x 500 mg) PO Q6H PRN 04/12/22 Pain #0 tabs ibuprofen 600 mg tablet 600 mg PO Q6H PRN #40 tabs 04/12/22 oxycodone 5 mg tablet 5 mg PO Q4H PRN 4 OR GREATER ON 04/12/22 PAIN SCALE 7 days #20 tabs ondansetron 4 mg disintegrating 4 mg PO Q6H PRN nausea and 04/15/22 tablet vomiting #10 tabs Allergies Allergy/AdvReac Type Severity Reaction Status Date / Time Anesthetics - Amide Type - AdvReac Intermediate Nausea Verified 04/24/22 12:59 Select A Review of Systems Status of ROS: Reports: 6 or more systems reviewed and unremarkable except as noted in History and below [facility] Medical History (Updated 08/07/22 @ 15:18 by Laith Lai MD) History of eczema (01/2022) ?Z87.2 - Personal history of diseases of the skin and subcutaneous tissue (ICD-10) 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 - Other specified conditions associated with female genital organs and menstrual cycle (ICD-10) Concussion ?S06.0XAA - Concussion with loss of consciousness status unknown, initial encounter (ICD-10) History of ectopic ?Z87.59 - Personal history of other complications of , childbirth and the puerperium (ICD-10) Anxiety ?F41.9 - Anxiety disorder, unspecified (ICD-10) Polycystic ovaries ?E28.2 - Polycystic ovarian syndrome (ICD-10) Migraine ?G43.909 - Migraine, unspecified, not intractable, without status migrainosus (ICD-10) Depression ?F32.A - Depression, unspecified (ICD-10) Attention deficit disorder ?F98.8 - Other specified behavioral and emotional disorders with onset usually occurring in childhood and adolescence (ICD-10) Surgical History History of unilateral salpingectomy (04/12/22) ?Z90.79 - Acquired absence of other genital organ(s) (ICD-10) H/O wisdom tooth extraction ?K08.409 - Partial loss of teeth, unspecified cause, unspecified class (ICD- 10) History of cholecystectomy (12/30/18) ?Z90.49 - Acquired absence of other specified parts of digestive tract (ICD- 10) H/O unilateral salpingectomy (05/26/21) ?Z90.79 - Acquired absence of other genital organ(s) (ICD-10) History of hysteroscopy (08/29/21) ?Z98.890 - Other specified postprocedural states (ICD-10) History of reversal of tubal ligation (01/2020) ?Z98.890 - Other specified postprocedural states (ICD-10) Vaginal delivery ?O80 - Encounter for full-term uncomplicated delivery (ICD-10) Status post repair of patent ductus arteriosus (1986) ?Z87.74 - Personal history of (corrected) congenital malformations of heart and circulatory system (ICD-10) Status post primary low transverse section (02/12/17) ?Z98.891 - History of uterine scar from previous surgery (ICD-10) Family History Other Multiple sclerosis Myocardial infarction Thyroid disease Social History Narrative: Lives in [place] with & 3 kids, ages 11, 9 and 5. Works at [employer]. No smoking 4 drinks / year No recreational drug use Smoking Status: Never smoker Do you use any of these nicotine containing products: None How often do you have a drink containing alcohol: monthly or less How often do you have six or more drinks on one occasion: Never AUDIT-C Alcohol total score: 1 Non-prescribed substance use: denies use Caffeine: No Are you using contraception or practicing any form of control: Yes (condoms) Exam Narrative: Exam Narrative: Pleasant. Breathing easily. NAD but eyes are starting to well up. Lungs are clear. Sore for her to transition to seated position. Throat is not particularly erythematous. Recent dental extraction evident in the right upper jaw. There is some mild mucosal erosion on the posterior gumline in the socket but I do not see surrounding inflammatory changes. She is not tender to palpation exteriorly. Oropharynx otherwise is moist. Neck is supple without lymphadenopathy. Heart is in a regular rhythm but tachycardic. Abdomen is soft and is moderately tender suprapubic palpation. I think some of this was surprise. Lower extremities without edema. Subjectively feels full to palpation of the right calf but not particularly tender. Well-perfused peripherally. Const: Vital Signs, click to edit/add: Vital Signs - 24 hr 08/07/22 12:55 08/07/22 12:56 08/07/22 12:57 Temperature 99.5 F Pulse Rate 120 H Pulse Rate [Right Pulse Oximeter] 120 H Respiratory Rate 18 Blood Pressure 136/92 H Blood Pressure [Ri ght Upper Arm] 136/92 H Pulse Oximetry 100 100 Oxygen Delivery Me thod Room Air 08/07/22 13:00 08/07/22 13:02 08/07/22 13:15 Temperature Pulse Rate 119 H 118 H 125 H Pulse Rate [Right Pulse Oximeter] Respiratory Rate Blood Pressure 129/89 Blood Pressure [Ri ght Upper Arm] Pulse Oximetry 99 99 100 Oxygen Delivery Me thod 08/07/22 13:32 08/07/22 13:33 08/07/22 13:45 Temperature Pulse Rate 124 H 128 H 131 H Pulse Rate [Right Pulse Oximeter] Respiratory Rate Blood Pressure 131/86 Blood Pressure [Ri ght Upper Arm] Pulse Oximetry 100 100 100 Oxygen Delivery Me thod 08/07/22 14:00 08/07/22 14:02 08/07/22 14:03 Temperature Pulse Rate 121 H 120 H Pulse Rate [Right Pulse Oximeter] Respiratory Rate Blood Pressure 106/74 Blood Pressure [Ri ght Upper Arm] Pulse Oximetry 99 99 94 Oxygen Delivery Me thod Documenting provider has reviewed patient's vital signs: yes Course Vital Signs Vital signs: Initial Vital Signs Temperature 99.5 F 08/07/22 12:55 Temperature Source Temporal Artery Scan 08/07/22 12:55 Pulse Rate 120 H 08/07/22 12:55 Respiratory Rate 18 08/07/22 12:55 Blood Pressure 136/92 H 08/07/22 12:55 Blood Pressure Mean 106 H 08/07/22 12:55 Blood Pressure Position Sitting 08/07/22 12:55 Pulse Oximetry 100 08/07/22 12:55 Oxygen Delivery Method Room Air 08/07/22 12:55 Vital Signs Temperature 99.5 F 08/07/22 12:55 Pulse Rate 120 H 08/07/22 12:55 Respiratory Rate 18 08/07/22 12:55 Blood Pressure 136/92 H 08/07/22 12:55 Pulse Oximetry 100 08/07/22 12:55 Oxygen Delivery Method Room Air 08/07/22 12:55 Temperature 99.5 F 08/07/22 12:55 Pulse Rate 110 H 08/07/22 15:15 Respiratory Rate 18 08/07/22 12:55 Blood Pressure 108/69 08/07/22 15:01 Pulse Oximetry 96 08/07/22 15:15 Oxygen Delivery Method Room Air 08/07/22 12:55 Medical Decision Making MDM Narrative Medical decision making narrative: I think most likely infectious etiology to this tachycardia. In spite of absent symptoms given community prevalence possibly strep involvement. Some degree of dehydration. Will treat with antiemetics and fluids and ketorolac for aches. D-dimer as symptoms somewhat consistent with pulmonary embolus will be collected but understanding it might be elevated due to inflammatory/affection condition otherwise. Will screen for COVID influenza. Most likely lower leg swelling is not representing DVT. Chest x-ray looking for pneumonia. by my read CXR unremarkable. ekg as below. mild suppression of lymphocytes and indeed covid positive. discussed with Elisha and notes that had 1st covid shot only; that it altered menses. did have covid twice prior last more than 1 year ago. did not feel this bad with only mild sxs. After treatments, on reassessments, feels markedly better. clearly with more energy and seems more positive. see patient discharge plan Lab Data Lab results reviewed: Yes I reviewed the patient's lab results Labs: Lab Results 08/07/22 08/07/22 Range/Units 13:30 13:40 WBC 9.43 (4.50-11.00) K/uL RBC 5.05 (4.00-5.20) m/uL Hgb 14.1 (12.0-16.0) gm/dL Hct 41.0 (33.0-51.0) % MCV 81 (80-100) fL MCH 28 (26-34) pg MCHC 34 (32-36) gm/dL RDW Coeff of Opal 11.8 (11.5-15.5) % Plt Count 317 (140-440) K/uL Neut % (Auto) 88.1 H (42.0-72.0) % Lymph % (Auto) 5.7 L (20-44) % [place] % (Auto) 5.5 (0.0-11.0) % Eos % (Auto) 0.3 (0.0-7.0) % Baso % (Auto) 0.2 (0.0-3.0) % Neut # (Auto) 8.30 H (1.7-7.0) K/uL Lymph # (Auto) 0.50 L (0.90-2.90) K/uL [place] # (Auto) 0.50 (0.00-0.90) K/UL Eos # (Auto) 0.03 (0.00-0.50) K/uL Baso # (Auto) 0.02 (0.00-0.30) K/uL D-Dimer Quant (PE/DVT) 0.34 (0.00-0.50) ug/ml Sodium 137 (135-149) mmol/L Potassium 3.7 (3.6-5.1) mmol/L Chloride 100 (96-114) mmol/L Carbon Dioxide 23 (20-32) mmol/L BUN 11 (5-24) mg/dL Creatinine 0.8 (0.5-1.5) mg/dL Estimated Creat Clear 96.52 Estimated GFR 97 ml/min Glucose 101 (60-115) mg/dL Calcium 9.6 (8.4-10.6) mg/dL C-Reactive Protein 0.9 (0.5-1.0) mg/dL Urine Color Yellow (Yellow) Urine Appearance Clear (Clear) Urine pH 8.5 (5.0-8.5) Ur Specific [place] 1.015 (1.000-1.030) Urine Protein Negative (Negative) Urine Glucose (UA) Negative (Negative) Urine Ketones Trace A (Negative) Urine Blood Negative (Negative) Urine Nitrite Negative (Negative) Urine Bilirubin Negative (Negative) Urine Urobilinogen 0.2 (0.2-1.0) Ur Leukocyte Esterase Negative (Negative) Urine RBC 0-2 (0-2) Urine WBC 0-2 (0-5) Ur Squamous Epith Cells None (None-Few) Urine Bacteria None (None) SARS-CoV-2 (PCR) POSITIVE SARS-CoV-2 A (Negative) Influenza Type A (PCR) Negative PCR FLU A (Negative) Influenza Type B (PCR) Negative PCR FLU B (Negative) Group A Strep DNA NOT DETECTED (Not Detectd) ECG Data Attestation: I personally reviewed and interpreted this ECG as follows: (Initial EKG reviewed by me shows sinus tachycardia at 1:23 a.m. is calculated. Do not appreciate acute ischemic changes.) Discharge Plan Discharge Clinical Impression: COVID-19, Tachycardia, Dehydration Patient Disposition: Home, Self-Care Condition: Improved Instructions: COVID-19 (Coronavirus Disease 2019) (ED) Additional Instructions: Stay well-hydrated. Can take up to 800 mg ibuprofen or up to 1000 mg of acetaminophen per dose. If becoming increasingly short of breath, get an oxygen monitor return for oxygen saturations of 90% or less. I would quarantine for 10 days from 1st day of symptoms. In a couple of weeks, once you're hopefully feeling much better, consider completing COVID vaccine series. Alternatively I suppose could check for antibodies? Might discuss with your primary care provider. Prescriptions: No Action prenat.vits,nain,cdn-kane-rcuac Tablet 1 tab PO QDAY Probiotic 3 billion cell capsule 3,000 mmu cells PO QDAY Rx Instructions: administer with a meal acetaminophen 500 mg Tablet 1,000 mg PO Q6H PRN (Reason: Pain) Qty: 0 0RF oxycodone 5 mg Tablet 5 mg PO Q4H PRN (Reason: 4 OR GREATER ON PAIN SCALE) 7 Days Qty: 20 0RF ibuprofen 600 mg tablet 600 mg PO Q6H PRNQty: 40 0RF ondansetron 4 mg tablet,disintegrating 4 mg PO Q6H PRN (Reason: nausea and vomiting) Qty: 10 0RF Follow Up/Referrals: Mragarita Rodriguez MD [Primary Care Provider] - Stand Alone Forms: [employer] Info Instructions
[2022-08-07 13:43] LABS: Appearance Urine Clear (Clear); Bilirubin Urine Negative (Negative); Blood Urine Negative (Negative); Color Urine Yellow (Yellow); Glucose Urine Negative (Negative); Ketones Urine Trace (Negative); Leukocyte Esterase Urine Negative (Negative); Nitrite Urine Negative (Negative); Protein Urine Negative (Negative); Specific Gravity Urine 1.015 (1.000-1.030); Urobilinogen Urine 0.2 (0.2-1.0); pH Urine 8.5 (5.0-8.5)
[2022-08-07 13:51] LABS: Basophils Absolute Auto 0.02 K/uL (0.00-0.30); Basophils Percent Auto 0.2 % (0.0-3.0); Eosinophils Absolute Auto 0.03 K/uL (0.00-0.50); Eosinophils Percent Auto 0.3 % (0.0-7.0); Hemoglobin* 14.1 gm/dL (12.0-16.0); Immature Granulocytes Abs Auto 0.02 K/uL (0.00-0.30); Immature Granulocytes Pct Auto 0.2 %; Lymphocytes Percent Auto 5.7 % (20-44); Mean Corpuscular HGB Conc 34 gm/dL (32-36); Mean Corpuscular Hemoglobin 28 pg (26-34); Mean Corpuscular Volume 81 fL (80-100); Monocytes Percent Auto 5.5 % (0.0-11.0); Neutrophils Percent Auto 88.1 % (42.0-72.0); Platelet Count* 317 K/uL (140-440); RDW Coefficient of Variation % 11.8 % (11.5-15.5); Red Blood Count 5.05 m/uL (4.00-5.20); White Blood Count* 9.43 K/uL (4.50-11.00)
[2022-08-07] MEDS: KETOROLAC 30 MG/ML inj IVP (13:52)
[2022-08-07] MEDS: 0.9 % SODIUM CHLORIDE 1000 ml 1,000 ML IV (13:52)
[2022-08-07] MEDS: ONDANSETRON 2 MG/ML inj 4 MG IVP (13:53)
[2022-08-07 13:59] LABS: Slide Review Reflex No
[2022-08-07 14:01] LABS: RBC Urine 0-2 (0-2); WBC Urine 0-2 (0-5)
[2022-08-07 14:04] LABS: Sodium* 137 mmol/L (135-149)
[2022-08-07 14:05] LABS: Blood Urea Nitrogen* 11 mg/dL (5-24); Carbon Dioxide* 23 mmol/L (20-32); Chloride* 100 mmol/L (96-114); Creatinine* 0.8 mg/dL (0.5-1.5); Est. Creatinine Clearance* 96.52; Estimated Glomerular Filt Rate 97 ml/min; Glucose* 101 mg/dL (60-115); Potassium* 3.7 mmol/L (3.6-5.1)
[2022-08-07 14:15] LABS: D Dimer Quantitative* 0.34 ug/ml (0.00-0.50)
[2022-08-07 14:20] LABS: Strep A DNA Probe* NOT DETECTED (Not Detectd)
[2022-08-07 14:31] LABS: PCR FLU A Negative PCR FLU A (Negative); PCR FLU B Negative PCR FLU B (Negative)
[2022-08-07 14:33] LABS: SARS PCR* POSITIVE SARS-CoV-2 (Negative)
[2022-08-09 02:33] LABS: Calcium* 9.6 mg/dL (8.4-10.6)
[2022-08-09 02:36] LABS: C Reactive Protein* 0.9 mg/dL (0.5-1.0)
== END 2022-08-07 15:33 | disposition home or self-care (01) ==
PROVIDERS: Emergency Provider Family Medicine; PCP Family Medicine
DX: U07.1 COVID-19 (principal); R00.0 Tachycardia, unspecified; E86.0 Dehydration
CPT/HCPCS: 36415; 71045; 80048; 81001; 85025; 85379; 86140; 87631; 87651; 93005; 94761; 96374; 96375; 99284; 99285; J1885; J2405; J7030